=== PATIENT | male | born 1940 | race Caucasian/White ===

== ENCOUNTER 2021-09-06 16:50 | Emergency (ER) | payer MEDICARE, OTHER ==
[2021-09-06] MEDS ORDERED: Oseltamivir 75 MG CAP ONE (18:17)
[2021-09-06] MEDS ORDERED: Boostrix 0.5 ML (Tdap) VIAL ONE (18:17)
== END 2021-09-06 18:35 | disposition home or self-care (01) ==
LOC: MADERS 16:50
DX: S22.32XA Fracture of one rib, left side, initial encounter for closed fracture (principal); S40.022A Contusion of left upper arm, initial encounter; S80.12XA Contusion of left lower leg, initial encounter; Z23 Encounter for immunization; W11.XXXA Fall on and from ladder, initial encounter
CPT/HCPCS: 90471; 90715